=== PATIENT | male | born 1990 | race Caucasian/White ===

== ENCOUNTER 2019-02-08 10:01 | Emergency (ER) | payer OTHER ==
[2019-02-08] MEDS ORDERED: PROMETHAZINE 25 MG/ML VIAL ONE ×2 (11:12→12:16)
[2019-02-08] MEDS ORDERED: NA CHLORIDE 0.9% 2,000 ML ONE (11:13)
[2019-02-08] MEDS ORDERED: FOLIC ACID 5 MG/ML VIAL ONE (11:13)
--- NOTE | 2019-02-08 13:04 | ER ---
Nurse's Notes [facility] Name: Stan Phillips Age: 28 yrs Sex: Male : 1990 Arrival Date: 02/08/2019 Time: 10:05 Bed 15 Private MD: Jessica Romano H Diagnosis: Vomiting;Volume depletion Presentation: 02/08 10:10 Presenting complaint: Patient states: I had quite a bit to drink yesterday/last night la1 and this morning I cant keep anything down. Been vomiting all morning probably 4 times. Transition of care: patient was not received from another setting of care. Onset of symptoms was February 08, 2019. Risk Assessment: Do you want to hurt yourself or someone else? Patient reports no desire to harm self or others. Initial Sepsis Screen: Does the patient meet any 2 criteria? No. Patient's initial sepsis screen is negative. Does the patient have a suspected source of infection? No. Patient's initial sepsis screen is negative. Care prior to arrival: None. 10:10 Method Of Arrival: Ambulatory la1 10:10 Acuity: FLORES 3 la1 Historical: - Allergies: 10:11 No Known Allergies; la1 - Home Meds: 10:11 None [Active]; la1 - PMHx: 10:11 None; la1 - PSHx: 10:11 None; la1 - Immunization history:: Adult Immunizations up to date. - Social history:: Smoking status: Patient uses tobacco products, denies chronic smoking, but will smoke occasionally. - Ebola Screening: : No symptoms or risks identified at this time. Screenin:30 Abuse screen: Denies threats or abuse. Nutritional screening: reports not being able to rb1 keep anything down this morning. Tuberculosis screening: No symptoms or risk factors identified. Fall Risk None identified. Assessment: 10:30 General: Appears in no apparent distress. comfortable, Behavior is calm, cooperative. rb1 Pain: Denies pain. Neuro: Level of Consciousness is awake, alert, obeys commands, Oriented to person, place, time, situation. Cardiovascular: Capillary refill < 3 seconds is brisk in bilateral fingers. Respiratory: Airway is patent Respiratory effort is even, unlabored, Respiratory pattern is regular, symmetrical. GI: Abdomen is flat, non-distended, Reports nausea, vomiting, since 0530 this morning. : No signs and/or symptoms were reported regarding the genitourinary system. Derm: Skin is pink, warm \T\ dry. 12:20 Reassessment: reports being nauseous, vomited x 1, provider notified, new medication em orders received. 12:50 Reassessment: Patient appears in no apparent distress at this time. Patient and/or rb1 family updated on plan of care and expected duration. Pain level reassessed. Patient is alert, oriented x 3, equal unlabored respirations, skin warm/dry/pink. Patient states feeling better. Vital Signs: 10:12 BP 117 / 71; Pulse 82; Resp 16; Temp 97.4; Pulse Ox 100% on R/A; Weight 85.28 kg; la1 Height 5 ft. 9 in. (175.26 cm); 11:10 BP 119 / 67; Pulse 91; Resp 16; Pulse Ox 100% on R/A; rb1 12:50 BP 113 / 68; Pulse 86; Resp 17; Pulse Ox 100% ; rb1 10:12 Body Mass Index 27.76 (85.28 kg, 175.26 cm) la1 ED Course: 10:05 Patient arrived in ED. mr 10:06 Jessica Romano DO is Private Physician. mr 10:10 Arm band placed on right wrist. la1 10:11 Triage completed. la1 10:12 Mary Naidu FNP-C is PHCP. snw 10:12 Kyle North MD is Attending Physician. snw 10:14 Maribell Agudelo, RN is Primary Nurse. rb1 10:30 Patient has correct armband on for positive identification. Bed in low position. Call rb1 light in reach. Side rails up X 1. Pulse ox on. NIBP on. 11:20 Inserted saline lock: 22 gauge in right antecubital area, using aseptic technique. kj1 13:03 Jessica Romano DO is Referral Physician. snw 13:20 No provider procedures requiring assistance completed. IV discontinued, intact, rb1 bleeding controlled, No redness/swelling at site. Pressure dressing applied. Administered Medications: 11:14 Drug: NS 0.9% 2000 ml Route: IV; Rate: 1 bolus; Site: right antecubital; em 12:22 Follow up: IV Status: Completed infusion rb1 11:18 Drug: Phenergan 6.25 mg Route: IVP; Site: right antecubital; la1 12:00 Follow up: Response: No adverse reaction; Nausea is decreased em 11:21 Drug: foLIC Acid 1 mg Route: IVPB; Site: right antecubital; la1 12:02 Follow up: Response: No adverse reaction rb1 12:22 Drug: Phenergan 6.25 mg Route: IVP; Site: right antecubital; em 12:51 Follow up: Response: No adverse reaction; Nausea is decreased em Outcome: 13:03 Discharge ordered by MD. chaney 13:20 Discharged to home ambulatory, with significant other. rb1 13:20 Condition: stable 13:20 Discharge instructions given to patient, Instructed on discharge instructions, follow up and referral plans. medication usage, Demonstrated understanding of instructions, follow-up care, medications, Prescriptions given X 2. 13:26 Patient left the ED. rb1 Signatures: Mary Naidu, MULTI SPINDLE OPERATOR-C MULTI SPINDLE OPERATOR-CsnCamille Pendleton mr Glenn, Seth, GREY PERCHER GREY PERCHER em Geovanny Wells RN RN la1 Maribell Agudelo, RN RN rb1 Halie Rice kj1 Corrections: (The following items were deleted from the chart) 12:40 12:20 Reassessment: reports being nauseous, provider notified, new medication orders em received em
--- NOTE | 2019-02-08 13:05 | EDPHYS ---
Physician Documentation [facility] Name: Stan Phillips Age: 28 yrs Sex: Male : 1990 Arrival Date: 02/08/2019 Time: 10:05 Bed 15 Private MD: Jessica Romano H ED Physician Kyle North HPI: 02/08 10:26 This 28 yrs old Male presents to ER via Ambulatory with complaints of snw Vomiting, Dehydrated. 10:26 The patient presents to the emergency department with nausea, vomiting. Onset: The snw symptoms/episode began/occurred suddenly, at 05:00. Possible causes: ETOH. Associated signs and symptoms: The patient has no apparent associated signs or symptoms. Severity of symptoms: At their worst the symptoms were moderate this morning. The patient has experienced similar episodes in the past, multiple times. The patient has not recently seen a physician. Historical: - Allergies: 10:11 No Known Allergies; la1 - Home Meds: 10:11 None [Active]; la1 - PMHx: 10:11 None; la1 - PSHx: 10:11 None; la1 - Immunization history:: Adult Immunizations up to date. - Social history:: Smoking status: Patient uses tobacco products, denies chronic smoking, but will smoke occasionally. - Ebola Screening: : No symptoms or risks identified at this time. ROS: 10:26 Constitutional: Negative for fever, chills, and weight loss, Eyes: Negative for injury, snw pain, redness, and discharge, ENT: Negative for injury, pain, and discharge, Neck: Negative for injury, pain, and swelling, Cardiovascular: Negative for chest pain, palpitations, and edema, Respiratory: Negative for shortness of breath, cough, wheezing, and pleuritic chest pain, Back: Negative for injury and pain, : Negative for injury, bleeding, discharge, and swelling, MS/Extremity: Negative for injury and deformity, Skin: Negative for injury, rash, and discoloration, Neuro: Negative for headache, weakness, numbness, tingling, and seizure. 10:26 Abdomen/GI: Positive for nausea and vomiting. Exam: 10:26 Constitutional: This is a well developed, well nourished patient who is awake, alert, snw and in no acute distress. Head/Face: Normocephalic, atraumatic. Eyes: Pupils equal round and reactive to light, extra-ocular motions intact. Lids and lashes normal. Conjunctiva and sclera are non-icteric and not injected. Cornea within normal limits. Periorbital areas with no swelling, redness, or edema. ENT: Nares patent. No nasal discharge, no septal abnormalities noted. Tympanic membranes are normal and external auditory canals are clear. Oropharynx with no redness, swelling, or masses, exudates, or evidence of obstruction, uvula midline. Mucous membranes moist. Neck: Trachea midline, no thyromegaly or masses palpated, and no cervical lymphadenopathy. Supple, full range of motion without nuchal rigidity, or vertebral point tenderness. No Meningismus. Chest/axilla: Normal chest wall appearance and motion. Nontender with no deformity. No lesions are appreciated. Cardiovascular: Regular rate and rhythm with a normal S1 and S2. No gallops, murmurs, or rubs. Normal PMI, no JVD. No pulse deficits. Respiratory: Lungs have equal breath sounds bilaterally, clear to auscultation and percussion. No rales, rhonchi or wheezes noted. No increased work of breathing, no retractions or nasal flaring. Back: No spinal tenderness. No costovertebral tenderness. Full range of motion. Skin: Warm, dry with normal turgor. Normal color with no rashes, no lesions, and no evidence of cellulitis. MS/ Extremity: Pulses equal, no cyanosis. Neurovascular intact. Full, normal range of motion. Neuro: Awake and alert, GCS 15, oriented to person, place, time, and situation. Cranial nerves II-XII grossly intact. Motor strength 5/5 in all extremities. Sensory grossly intact. Cerebellar exam normal. Normal gait. Psych: Awake, alert, with orientation to person, place and time. Behavior, mood, and affect are within normal limits. 10:26 Abdomen/GI: Inspection: abdomen appears normal, Bowel sounds: normal, Palpation: soft. Vital Signs: 10:12 BP 117 / 71; Pulse 82; Resp 16; Temp 97.4; Pulse Ox 100% on R/A; Weight 85.28 kg; la1 Height 5 ft. 9 in. (175.26 cm); 11:10 BP 119 / 67; Pulse 91; Resp 16; Pulse Ox 100% on R/A; rb1 12:50 BP 113 / 68; Pulse 86; Resp 17; Pulse Ox 100% ; rb1 10:12 Body Mass Index 27.76 (85.28 kg, 175.26 cm) la1 MDM: 10:12 Patient medically screened. snw 18:33 Data reviewed: vital signs, nurses notes. Data interpreted: Pulse oximetry: on room air snw is 100 %. Interpretation: normal. Counseling: I had a detailed discussion with the patient and/or guardian regarding: the historical points, exam findings, and any diagnostic results supporting the discharge/admit diagnosis, the need for outpatient follow up, to return to the emergency department if symptoms worsen or persist or if there are any questions or concerns that arise at home. Special discussion: Based on the history and exam findings, there is no indication for further emergent testing or inpatient evaluation. I discussed with the patient/guardian the need to see the primary care provider for further evaluation of the symptoms. Administered Medications: 11:14 Drug: NS 0.9% 2000 ml Route: IV; Rate: 1 bolus; Site: right antecubital; em 12:22 Follow up: IV Status: Completed infusion rb1 11:18 Drug: Phenergan 6.25 mg Route: IVP; Site: right antecubital; la1 12:00 Follow up: Response: No adverse reaction; Nausea is decreased em 11:21 Drug: foLIC Acid 1 mg Route: IVPB; Site: right antecubital; la1 12:02 Follow up: Response: No adverse reaction rb1 12:22 Drug: Phenergan 6.25 mg Route: IVP; Site: right antecubital; em 12:51 Follow up: Response: No adverse reaction; Nausea is decreased em Disposition: 18:27 Co-signature as Attending Physician, Kyle North MD. ma2 Disposition: 02/08/19 13:03 Discharged to Home. Impression: Vomiting, Volume depletion. - Condition is Stable. - Discharge Instructions: Dehydration, Adult, Nausea and Vomiting, Adult, Rehydration, Adult. - Prescriptions for Zofran 4 mg Oral Tablet - take 1 tablet by ORAL route every 12 hours As needed; 6 tablet. promethazine 25 mg Oral Tablet - take 1 tablet by ORAL route every 6 hours As needed; 20 tablet. - Work release form, Medication Reconciliation Form, Thank You Letter, Antibiotic Education, Prescription Opioid Use form. - Follow up: [facility] Romano; When: 2 - 3 days; Reason: Recheck today's complaints, Continuance of care, Re-evaluation by your physician. Follow up: Emergency Department; When: As needed; Reason: Worsening of condition. Signatures: Mary Naidu, CORPORATE LEGAL MANAGER-C CORPORATE LEGAL MANAGER-Csnw Seth Elizabeth, SEWER PIPE LAYER SEWER PIPE LAYER Geovanny Castro, RN RN la1 Maribell Agudelo, RN RN rb1 Kyle North MD MD ma2 Corrections: (The following items were deleted from the chart) 13:26 13:03 02/08/2019 13:03 Discharged to Home. Impression: Vomiting; Volume depletion. rb1 Condition is Stable. Discharge Instructions: Dehydration, Adult, Nausea and Vomiting, Adult, Rehydration, Adult. Prescriptions for Zofran 4 mg Oral Tablet - take 1 tablet by ORAL route every 12 hours As needed; 6 tablet, promethazine 25 mg Oral Tablet - take 1 tablet by ORAL route every 6 hours As needed; 20 tablet. and Forms are Work release form, Medication Reconciliation Form, Thank You Letter, Antibiotic Education, Prescription Opioid Use. Follow up: [facility]-Rom[facility] Romano; When: 2 - 3 days; Reason: Recheck today's complaints, Continuance of care, Re-evaluation by your physician. Follow up: Emergency Department; When: As needed; Reason: Worsening of condition. snw
[2019-02-08 13:38] VITALS: TEMP 97.4; O2SAT 100
[2019-02-08 13:41] VITALS: BP 113/68
== END 2019-02-08 13:26 | disposition home or self-care (01) ==
LOC: ER 10:01
DX: E86.9 Volume depletion, unspecified (principal); Z72.0 Tobacco use
CPT/HCPCS: 96361; 96375; 96374; 99284; J2550 ×2; J7030